=== PATIENT | male | born 1975 | race American Indian/Alaskan Native ===

== ENCOUNTER 2016-10-15 19:19 | Emergency (ER) | payer BC ==
[2016-10-16] MEDS ORDERED: CLEOCIN IM ONE (03:02)
[2016-10-16] MEDS ORDERED: MOTRIN PO ONE (03:03)
--- NOTE | 2016-10-16 03:21 | Emergency Department Report ---
ED ENT HPI - General Chief complaint: Animal Bite Stated complaint: NECK SWOLLEN/IRRITATION Time Seen by Provider: 10/16/16 02:47 Source: patient Mode of arrival: Ambulatory Limitations: No Limitations - History of Present Illness Initial comments: 41-year-old male past medical history presents with complaint of discomfort in the upper neck region since yesterday. Patient states he was at work felt like a spider or bug may have bitten him underneath the chin and has subsequently developed mild discomfort in this area. Patient denies any shortness of breath no difficulty swallowing solids or liquids has no visible stridor no muffled voice no drooling. Patient denies any fever or chills. Denies any direct trauma to neck or blunt trauma to neck. Patient denies any pus or blood drainage from oral cavity no recent dental work. Speaking in full sentences during clinical exam is awake alert and oriented 3 not in acute distress MD complaint: sore throat Onset/Timin -: days(s) Severity: mild Severity scale (0 -10): 4 Quality: aching Consistency: constant Improves with: none Worsens with: none - Related Data Previous Rx's Medication Instructions Recorded Last Taken Type Clindamycin [Clindamycin CAP] 300 mg PO Q6H #28 capsule 10/16/16 Unknown Rx Ibuprofen [Motrin] 600 mg PO Q8H PRN #30 tablet 10/16/16 Unknown Rx Allergies Allergy/AdvReac Type Severity Reaction Status Date / Time No Known Allergies Allergy Verified 10/15/16 19:35 ED Dental HPI - General Chief complaint: Animal Bite Stated complaint: NECK SWOLLEN/IRRITATION Time Seen by Provider: 10/16/16 02:47 Source: patient Mode of arrival: Ambulatory Limitations: No Limitations - Related Data Previous Rx's Medication Instructions Recorded Last Taken Type Clindamycin [Clindamycin CAP] 300 mg PO Q6H #28 capsule 10/16/16 Unknown Rx Ibuprofen [Motrin] 600 mg PO Q8H PRN #30 tablet 10/16/16 Unknown Rx Allergies Allergy/AdvReac Type Severity Reaction Status Date / Time No Known Allergies Allergy Verified 10/15/16 19:35 ED Review of Systems ROS: Stated complaint: NECK SWOLLEN/IRRITATION Other details as noted in HPI Constitutional: denies: chills, fever Eyes: denies: eye pain, eye discharge, vision change ENT: denies: ear pain, throat pain Respiratory: denies: cough, shortness of breath, wheezing Cardiovascular: denies: chest pain, palpitations Endocrine: no symptoms reported Gastrointestinal: denies: abdominal pain, nausea, diarrhea Genitourinary: denies: urgency, dysuria Musculoskeletal: denies: back pain, joint swelling, arthralgia Skin: denies: rash, lesions Neurological: denies: headache, weakness, paresthesias Psychiatric: denies: anxiety, depression Hematological/Lymphatic: denies: easy bleeding, easy bruising ED Past Medical Hx - Past Medical History Previous Medical History?: Yes Additional medical history: STOMACH ULCER - Surgical History Past Surgical History?: No - Social History Smoking Status: Former Smoker Substance Use Type: Alcohol - Medications Home Medications: Home Medications Medication Instructions Recorded Confirmed Last Taken Type Clindamycin [Clindamycin CAP] 300 mg PO Q6H #28 capsule 10/16/16 Unknown Rx Ibuprofen [Motrin] 600 mg PO Q8H PRN #30 tablet 10/16/16 Unknown Rx ED Physical Exam - General Limitations: No Limitations General appearance: alert, in no apparent distress - Head Head exam: Present: atraumatic, normocephalic - Eye Eye exam: Present: normal appearance, PERRL, EOMI - ENT ENT exam: Present: mucous membranes moist - Expanded ENT Exam Expanded Mouth exam: Present: normal external inspection Teeth exam: Present: normal inspection Throat exam: Positive: normal inspection - Neck Neck exam: Present: normal inspection, tenderness (patient has very mild tenderness and slightly indurated area just below the chin and submental region no palpable fluctuance no visible abscess had no significant external erythema and no involvement of intraoral cavity.), full ROM - Respiratory Respiratory exam: Present: normal lung sounds bilaterally. Absent: respiratory distress - Cardiovascular Cardiovascular Exam: Present: regular rate, normal rhythm. Absent: systolic murmur, diastolic murmur, rubs, gallop - GI/Abdominal GI/Abdominal exam: Present: soft, normal bowel sounds - Rectal Rectal exam: Present: deferred - Extremities Exam Extremities exam: Present: normal inspection - Back Exam Back exam: Present: normal inspection - Neurological Exam Neurological exam: Present: alert, oriented X3 - Psychiatric Psychiatric exam: Present: normal affect, normal mood - Skin Skin exam: Present: warm, dry, intact, normal color. Absent: rash ED Course Vital Signs 10/15/16 10/16/1617 19:36 00:16 03:05 Temperature 97.9 F Pulse Rate 82 76 Respiratory 20 18 18 Rate Blood Pressure 144/101 134/76 Blood Pressure [Left] O2 Sat by Pulse 98 100 Oximetry 10/16/16 10/16/16 03:20 04:54 Temperature 97.6 F Pulse Rate 74 Respiratory 18 18 Rate Blood Pressure Blood Pressure 138/72 136/82 [Left] O2 Sat by Pulse 100 100 Oximetry ED Medical Decision Making - Medical Decision Making A/P: Cellulitis 1-small patch of approximately 2 cm of induration with no fluctuance just below the chin submental region. Dr. Hook also examined the patient and agrees that he does not have Juarez's angina at this time, she gave him strict precautions to return if swelling worsens if he develops any difficulty speaking any difficulty breathing any drooling or signs of trismus or fever or chills, her recommendation is to treat patient empirically for cellulitis 2-will treat patient empirically for cellulitis with clindamycin will give 1 dose of IM 600 Clinda and ED. 3-a cleat instructed patient to return to the ED if he develops any severe fever chills drooling trismus difficult to breathing difficulty swallowing any reddening or significant enlargement swelling of anterior neck region. I showed patient pictures of Juarez's angina and neck cellulitis and instructed him to return [facility] if he develops the symptoms. he understood these instructions clearly 4-clindamycin 300 mg 4 times a day for 7 days Motrin when necessary for pain 5-follow up with primary doctor this week Critical care attestation.: If time is entered above; I have spent that time in minutes in the direct care of this critically ill patient, excluding procedure time. ED Disposition Clinical Impression: Cellulitis Qualifiers: Site of cellulitis: face Qualified Code(s): L03.211 - Cellulitis of face Disposition: DISCHARGED TO HOME OR SELFCARE Is pt being admited?: No Does the pt Need Aspirin: No Condition: Stable Instructions: Cellulitis (ED) Prescriptions: Clindamycin [Clindamycin CAP] 300 mg PO Q6H #28 capsule Ibuprofen [Motrin] 600 mg PO Q8H PRN #30 tablet PRN Reason: Pain Referrals: RICARDO WOODSON MD [Staff Physician] - 3-5 Days [facility] [Outside] - 3-5 Days Forms: Work/School Release Form(ED) Time of Disposition: 04:32
[2016-10-16 04:55] VITALS: BP 136/82
== END 2016-10-16 04:54 | disposition home or self-care (01) ==
LOC: ED 19:19
DX: L03.211 Cellulitis of face (principal); Z87.891 Personal history of nicotine dependence
CPT/HCPCS: 96372